=== PATIENT | female | born 1995 | race Caucasian/White ===

== ENCOUNTER 2020-04-18 21:59 | Emergency (ER) | payer SELFPAY ==
[~2020-04-18] VITALS: Ht 165.1 cm; Wt 70.8 kg
[2020-04-18 22:04] VITALS: Ht 165.1 cm; Wt 70.8 kg
[2020-04-18 23:24] VITALS: BP 129/67
== END 2020-04-18 23:24 | disposition home or self-care (01) ==
LOC: ED 21:59
DX: M25.421 Effusion, right elbow (principal); V00.131A Fall from skateboard, initial encounter; Y93.89 Activity, other specified; Y92.89 Other specified places as the place of occurrence of the external cause; Y99.8 Other external cause status